=== PATIENT | female | born 1940 | race Caucasian/White ===

== ENCOUNTER 2019-02-24 10:54 | Inpatient (IN) ==
[2019-02-24] MEDS ORDERED: 0.9 % Sodium Chloride 500 ML IVC ONE (11:07)
[2019-02-24 11:29] LABS: Basophils # 0.1 K/mcL (0.0-0.2); Basophils % 0.6 %; Eosinophils # 0.1 K/mcL (0.0-0.6); Eosinophils % 0.8 %; Hematocrit 42.8 % (35.3-44.9); Immature Granulocytes % 0.7 % (0-4); Lymphocytes # 2.1 K/mcL (0.6-4.6); Mean Corpuscular Volume 94.1 fL (83.0-100.0); Mean Platelet Volume 11.3 fL (9.4-12.4); Monocytes # 0.8 K/mcL (0.0-1.3); Monocytes % 8.4 %; Platelet Count 256 K/mcL (140-400); Red Blood Count 4.55 M/mcL (3.82-4.97); Segmented Neutrophils % 66.5 %
[2019-02-24 11:51] LABS: Calcium 9.7 mg/dL (8.6-10.3); Potassium 4.3 mEq/L (3.5-5.1)
[2019-02-24 11:59] LABS: INR 1.2; Prothrombin Time 13.5 Seconds (9.4-12.1)
[2019-02-24 12:02] LABS: Activated Partial Thrombo Time 34.3 Seconds (26.0-36.0)
[2019-02-24 12:04] LABS: Thyroid Stimulating Hormone 3.28 mcIU/mL (0.340-5.600)
[2019-02-24] MEDS ORDERED: Naloxone 0.4 MG/ML INJ IVP PRN (12:49)
[2019-02-24] MEDS ORDERED: *HR* HYDROcodone/Acet 5/325 mg TABLET PO PRN (12:51)
[2019-02-24] MEDS: Acetaminophen 325 MG TABLET PO PRN (20:29)
[2019-02-25 01:24] LABS: Basophils % 0.6 %; Eosinophils # 0.1 K/mcL (0.0-0.6); Hematocrit 36.5 % (35.3-44.9); Immature Granulocytes % 0.4 % (0-4); Lymphocytes # 1.9 K/mcL (0.6-4.6); Lymphocytes % 27.1 %; Mean Corpuscular HGB Conc 33.4 g/dL (31.6-35.5); Mean Corpuscular Hemoglobin 33.2 pg (28.0-33.3); Mean Corpuscular Volume 99.2 fL (83.0-100.0); Mean Platelet Volume 11.4 fL (9.4-12.4); Monocytes # 0.6 K/mcL (0.0-1.3); Monocytes % 8.8 %; Neutrophils # 4.5 K/mcL (1.6-8.9); Platelet Count 193 K/mcL (140-400); Red Blood Count 3.68 M/mcL (3.82-4.97); Red Cell Distribution Width 15.2 % (11.5-14.5); Segmented Neutrophils % 62.1 %; White Blood Count 7.2 K/mcL (4.3-11.1)
[2019-02-25 01:25] LABS: Hemoglobin 12.2 g/dL (11.5-15.4)
[2019-02-25 01:39] LABS: Calcium 8.8 mg/dL (8.6-10.3); Magnesium 1.6 mg/dL (1.6-2.6); Phosphorous 3.7 mg/dL (2.7-4.5); Potassium 3.8 mEq/L (3.5-5.1)
[2019-02-25] MEDS ORDERED: Regadenoson 0.4 MG/5 ML SYRINGE IVP ONE (05:56)
[2019-02-25] MEDS: Levothyroxine 25 MCG TABLET PO SCH (06:37)
[2019-02-25] MEDS ORDERED: amLODIPine 5 MG TABLET PO SCH (09:00)
[2019-02-25] MEDS: *HR* Rivaroxaban 15 MG TABLET PO SCH (16:54)
[2019-02-25] MEDS: Acetaminophen 325 MG TABLET PO PRN (20:40)
[2019-02-26 02:23] LABS: Basophils % 0.3 %; Eosinophils # 0.1 K/mcL (0.0-0.6); Eosinophils % 1.5 %; Hematocrit 37.7 % (35.3-44.9); Hemoglobin 12.2 g/dL (11.5-15.4); Immature Granulocytes % 0.4 % (0-4); Lymphocytes % 27.6 %; Mean Corpuscular HGB Conc 32.4 g/dL (31.6-35.5); Mean Corpuscular Hemoglobin 32.4 pg (28.0-33.3); Mean Platelet Volume 11.1 fL (9.4-12.4); Monocytes # 0.8 K/mcL (0.0-1.3); Monocytes % 10.2 %; Neutrophils # 4.4 K/mcL (1.6-8.9); Platelet Count 212 K/mcL (140-400); Red Blood Count 3.77 M/mcL (3.82-4.97); Red Cell Distribution Width 15.2 % (11.5-14.5); White Blood Count 7.4 K/mcL (4.3-11.1)
[2019-02-26 05:13] LABS: Basophils % 0.4 %; Eosinophils # 0.1 K/mcL (0.0-0.6); Eosinophils % 1.9 %; Hemoglobin 13.1 g/dL (11.5-15.4); Immature Granulocytes % 0.7 % (0-4); Mean Corpuscular HGB Conc 32.8 g/dL (31.6-35.5); Mean Corpuscular Hemoglobin 32.8 pg (28.0-33.3); Mean Platelet Volume 11.2 fL (9.4-12.4); Monocytes # 0.6 K/mcL (0.0-1.3); Neutrophils # 4.6 K/mcL (1.6-8.9); Platelet Count 230 K/mcL (140-400); Red Cell Distribution Width 15.1 % (11.5-14.5); White Blood Count 7.4 K/mcL (4.3-11.1)
[2019-02-26 05:39] LABS: Calcium 9.3 mg/dL (8.6-10.3); Potassium 4.1 mEq/L (3.5-5.1)
[2019-02-26] MEDS: Levothyroxine 25 MCG TABLET PO SCH ×2 (05:47→10:34)
[2019-02-26] MEDS ORDERED: Regadenoson 0.4 MG/5 ML SYRINGE IVP ONE (06:01)
[2019-02-26] MEDS ORDERED: Aminoglycoside Consult 1 EACH MC ONE (07:23)
[2019-02-26] MEDS ORDERED: *HR* Metoprolol 5 MG/5 ML VIAL IVP ONE (13:50)
[2019-02-26] MEDS: Metoprolol XL (24 HR) Succ 50 MG TAB.ER.24H PO SCH (18:25)
[2019-02-26] MEDS: *HR* Rivaroxaban 15 MG TABLET PO SCH (18:25)
[2019-02-26] MEDS: Acetaminophen 325 MG TABLET PO PRN (22:25)
[2019-02-27] MEDS: Levothyroxine 25 MCG TABLET PO SCH (07:04)
[2019-02-27 07:27] VITALS: BP 138/78
[2019-02-27] MEDS: Metoprolol XL (24 HR) Succ 50 MG TAB.ER.24H PO SCH (08:08)
[2019-02-27] MEDS ORDERED: FLU Vac QV 19-20 (6Month+)/PF 0.5 ML SYRINGE IM ONE (12:54)
== END 2019-02-27 14:54 | disposition home or self-care (01) | DRG 310 ==
LOC: 2NENU 10:54 → EMEROOARM 10:54 → SUATTDRO 13:23 → 2NENU 13:58 → SUATTDRO 02-25 20:21
PROVIDERS: ADMIT Student in an Organized Health Care Education/Training Program; ATTEND Internal Medicine

== ENCOUNTER 2021-07-04 10:56 | Inpatient (IN) ==
[2021-07-04] MEDS ORDERED: *HR* Metoprolol 5 MG/5 ML VIAL IVP ONE ×2 (11:48→20:43)
[2021-07-04 12:33] LABS: Basophils % 0.3 %; Eosinophils % 0.2 %; Hematocrit 36.5 % (35.3-44.9); Hemoglobin 11.2 g/dL (11.5-15.4); Immature Granulocytes % 0.4 % (0-4); Lymphocytes # 1.1 K/mcL (0.6-4.6); Lymphocytes % 10.7 %; Mean Corpuscular HGB Conc 30.7 g/dL (31.6-35.5); Mean Corpuscular Hemoglobin 28.6 pg (28.0-33.3); Mean Corpuscular Volume 93.1 fL (83.0-100.0); Monocytes # 0.7 K/mcL (0.0-1.3); Monocytes % 6.9 %; Neutrophils # 8.1 K/mcL (1.6-8.9); Platelet Count 264 K/mcL (140-400); Red Blood Count 3.92 M/mcL (3.82-4.97); Red Cell Distribution Width 16.2 % (11.5-14.5); Segmented Neutrophils % 81.5 %
[2021-07-04 12:53] LABS: Alanine Aminotransferase 8 Units/L (7-52); Albumin 3.7 g/dL (3.5-5.7); Albumin/Globulin Ratio 1.3 (1.1-2.2); Alkaline Phosphatase 71 Units/L (34-104); Aspartate Amino Transferase 11 Units/L (13-39); BUN/Creatinine Ratio 19 (6-26); Bilirubin,Total 0.6 mg/dL (0.3-1.0); Blood Urea Nitrogen 19 mg/dL (8-23); Calcium 9.6 mg/dL (8.6-10.3); Carbon Dioxide 29 mEq/L (23-29); Chloride 104 mEq/L (98-107); Globulin 2.9 g/dL (2.4-3.5); Glucose 116 mg/dL (70-105); Magnesium 1.5 mg/dL (1.6-2.6); Osmolality,Calculated 299 (280-300); Potassium 3.5 mEq/L (3.5-5.1); Sodium 143 mEq/L (136-145); Total Protein 6.6 g/dL (6.4-8.9); Troponin I 0.03 ng/mL (< 0.04); eGFR For African Americans > 60 (> 60); eGFR For Non-African Americans 52 (> 60)
[2021-07-04] MEDS ORDERED: cefTRIAXone 1,000 MG in 0.9 % Sodium Chloride Mini Bag 100 ML IVPB ONE (12:53)
[2021-07-04] MEDS ORDERED: Azithromycin 250 MG TABLET PO ONE (12:53)
[2021-07-04] MEDS: DilTIAZem 50 MG/50 ML IV.SOLN IVC SCH ×2 (13:10→16:57)
[2021-07-04] MEDS ORDERED: Furosemide 40 MG/4 ML VIAL IVP ONE (14:19)
[2021-07-04] MEDS ORDERED: *HR* Metoprolol 5 MG/5 ML VIAL IVP PRN (14:50)
[2021-07-04] MEDS ORDERED: Acetaminophen 325 MG TABLET PO PRN (15:10)
[2021-07-04] MEDS ORDERED: Ondansetron 4 MG/2 ML VIAL IVP PRN (15:10)
[2021-07-04] MEDS ORDERED: Melatonin 3 MG TABLET PO PRN (15:10)
[2021-07-04] MEDS ORDERED: Naloxone 0.4 MG/ML INJ IVP PRN (15:10)
[2021-07-04] MEDS ORDERED: *HR* Heparin 5,000 UNIT/ML VIAL IVP PRN ×2 (15:14)
[2021-07-04] MEDS ORDERED: Heparin 25,000UNIT/250ML 1/2NS 25,000 UNIT/250 ML IV.SOLN IVC SCH (15:15)
[2021-07-04] MEDS ORDERED: Potassium Chloride Elixir 20 MEQ/15 ML UDC PO ONE (15:17)
[2021-07-04] MEDS: *HR* Metoprolol 5 MG/5 ML VIAL IVP PRN ×2 (15:21→21:37)
[2021-07-04] MEDS: Metoprolol XL (24 HR) Succ 50 MG TAB.ER.24H PO SCH (16:15)
[2021-07-04] MEDS: Heparin 25,000UNIT/250ML 1/2NS 25,000 UNIT/250 ML IV.SOLN IVC SCH (16:16)
[2021-07-04 18:13] LABS: Hematocrit 35.7 % (35.3-44.9); Hemoglobin 11.1 g/dL (11.5-15.4); Mean Corpuscular HGB Conc 31.1 g/dL (31.6-35.5); Mean Corpuscular Hemoglobin 29.2 pg (28.0-33.3); Mean Corpuscular Volume 93.9 fL (83.0-100.0); Mean Platelet Volume 11.2 fL (9.4-12.4); Platelet Count 277 K/mcL (140-400); Red Cell Distribution Width 16.3 % (11.5-14.5); White Blood Count 13.2 K/mcL (4.3-11.1)
[2021-07-04 18:23] LABS: INR 1.6; Prothrombin Time 17.5 Seconds (9.4-12.1)
[2021-07-04 18:24] LABS: Activated Partial Thrombo Time 42.9 Seconds (26.0-36.0)
[2021-07-04 18:30] LABS: Heparin anti-factor XA UFH > 2.00 IU/mL (0.30-0.70)
[2021-07-04 22:44] LABS: ABG Base Excess 3 mEq/L (-2 to 3); ABG HCO3 27 mEq/L (21-27); ABG Oxygen Saturation 95 % (95-98); ABG PCO2 42 mmHg (35-45); ABG PH 7.42 pH Units (7.32-7.45); ABG PO2 76 mmHg (85-104); ABG TCO2 29 mEq/L (20-26)
[2021-07-04] MEDS ORDERED: *HR* Labetalol 20 MG/4 ML SYRINGE IVP ONE (23:53)
[2021-07-05 00:42] LABS: Basophils % 0.5 %; Eosinophils % 0.1 %; Hematocrit 33.8 % (35.3-44.9); Hemoglobin 10.5 g/dL (11.5-15.4); Immature Granulocytes % 0.4 % (0-4); Lymphocytes # 1.2 K/mcL (0.6-4.6); Lymphocytes % 14.2 %; Mean Corpuscular HGB Conc 31.1 g/dL (31.6-35.5); Mean Corpuscular Hemoglobin 29.2 pg (28.0-33.3); Mean Corpuscular Volume 93.9 fL (83.0-100.0); Monocytes # 0.7 K/mcL (0.0-1.3); Monocytes % 8.3 %; Neutrophils # 6.3 K/mcL (1.6-8.9); Platelet Count 228 K/mcL (140-400); Red Cell Distribution Width 16.1 % (11.5-14.5); Segmented Neutrophils % 76.5 %; White Blood Count 8.2 K/mcL (4.3-11.1)
[2021-07-05 00:50] LABS: INR 1.6; Prothrombin Time 17.4 Seconds (9.4-12.1)
[2021-07-05 01:07] LABS: BUN/Creatinine Ratio 19 (6-26); Blood Urea Nitrogen 19 mg/dL (8-23); Calcium 9.3 mg/dL (8.6-10.3); Carbon Dioxide 27 mEq/L (23-29); Chloride 105 mEq/L (98-107); Glucose 107 mg/dL (70-105); Magnesium 1.8 mg/dL (1.6-2.6); Osmolality,Calculated 297 (280-300); Potassium 3.7 mEq/L (3.5-5.1); Sodium 142 mEq/L (136-145); eGFR For African Americans > 60 (> 60); eGFR For Non-African Americans 52 (> 60)
[2021-07-05 01:08] LABS: Troponin I < 0.03 ng/mL (< 0.04)
[2021-07-05] MEDS: *HR* Metoprolol 5 MG/5 ML VIAL IVP PRN (05:07)
[2021-07-05] MEDS ORDERED: *HR* Labetalol 20 MG/4 ML SYRINGE IVP ONE ×2 (06:01→17:39)
[2021-07-05] MEDS: Levothyroxine 25 MCG TABLET PO SCH (06:12)
[2021-07-05] MEDS ORDERED: *HR* Metoprolol 5 MG/5 ML VIAL IVP ONE (08:18)
[2021-07-05] MEDS: Metoprolol XL (24 HR) Succ 50 MG TAB.ER.24H PO SCH (08:49)
[2021-07-05] MEDS ORDERED: *HR* Digoxin 0.5 MG/2 ML AMPUL IVP ONE (11:42)
[2021-07-05] MEDS ORDERED: Furosemide 40 MG/4 ML VIAL IVP ONE ×2 (11:47→13:00)
[2021-07-05] MEDS: *HR* Digoxin 0.5 MG/2 ML AMPUL IVP SCH ×2 (17:25→23:49)
[2021-07-05] MEDS: Heparin 25,000UNIT/250ML 1/2NS 25,000 UNIT/250 ML IV.SOLN IVC SCH (20:10)
[2021-07-05] MEDS ORDERED: Metoprolol XL (24 HR) Succ 50 MG TAB.ER.24H PO SCH (21:00)
[2021-07-06] MEDS ORDERED: *HR* Labetalol 20 MG/4 ML SYRINGE IVP ONE ×2 (03:18→05:08)
[2021-07-06] MEDS: Levothyroxine 25 MCG TABLET PO SCH (05:23)
[2021-07-06] MEDS: Metoprolol XL (24 HR) Succ 50 MG TAB.ER.24H PO SCH ×3 (07:50→20:33)
[2021-07-06] MEDS ORDERED: Furosemide 40 MG/4 ML VIAL IVP SCH ×2 (09:00→17:00)
[2021-07-06] MEDS ORDERED: *HR* Digoxin 0.125 MG TABLET PO SCH (09:00)
[2021-07-06 10:00] LABS: Basophils # 0.1 K/mcL (0.0-0.2); Basophils % 0.5 %; Eosinophils # 0.1 K/mcL (0.0-0.6); Eosinophils % 0.5 %; Hemoglobin 10.7 g/dL (11.5-15.4); Immature Granulocytes % 0.8 % (0-4); Lymphocytes # 1.1 K/mcL (0.6-4.6); Lymphocytes % 11.3 %; Mean Corpuscular HGB Conc 30.6 g/dL (31.6-35.5); Mean Corpuscular Hemoglobin 28.8 pg (28.0-33.3); Mean Corpuscular Volume 94.1 fL (83.0-100.0); Mean Platelet Volume 11.4 fL (9.4-12.4); Monocytes # 0.7 K/mcL (0.0-1.3); Neutrophils # 7.4 K/mcL (1.6-8.9); Platelet Count 209 K/mcL (140-400); Red Blood Count 3.72 M/mcL (3.82-4.97); Red Cell Distribution Width 15.8 % (11.5-14.5); Segmented Neutrophils % 79.9 %; White Blood Count 9.3 K/mcL (4.3-11.1)
[2021-07-06 10:01] LABS: BUN/Creatinine Ratio 17 (6-26); Blood Urea Nitrogen 18 mg/dL (8-23); Calcium 9.1 mg/dL (8.6-10.3); Carbon Dioxide 31 mEq/L (23-29); Chloride 100 mEq/L (98-107); Glucose 85 mg/dL (70-105); Osmolality,Calculated 295 (280-300); Potassium 3.6 mEq/L (3.5-5.1); Sodium 142 mEq/L (136-145); eGFR For African Americans > 60 (> 60); eGFR For Non-African Americans 51 (> 60)
[2021-07-06] MEDS: Heparin 25,000UNIT/250ML 1/2NS 25,000 UNIT/250 ML IV.SOLN IVC SCH (15:30)
[2021-07-06] MEDS: Albumin 25% 25gram/100mL 25 GM/100 ML IV.SOLN IVPB SCH (15:36)
[2021-07-06] MEDS: Furosemide 40 MG/4 ML VIAL IVP SCH (17:15)
[2021-07-07] MEDS: Albumin 25% 25gram/100mL 25 GM/100 ML IV.SOLN IVPB SCH (04:30)
[2021-07-07 04:43] LABS: Mean Corpuscular HGB Conc 30.3 g/dL (31.6-35.5); Mean Corpuscular Hemoglobin 28.2 pg (28.0-33.3); Mean Corpuscular Volume 93.2 fL (83.0-100.0); Mean Platelet Volume 10.9 fL (9.4-12.4); Platelet Count 212 K/mcL (140-400); Red Blood Count 3.54 M/mcL (3.82-4.97); Red Cell Distribution Width 15.3 % (11.5-14.5); White Blood Count 9.2 K/mcL (4.3-11.1)
[2021-07-07 04:59] LABS: BUN/Creatinine Ratio 16 (6-26); Blood Urea Nitrogen 16 mg/dL (8-23); Calcium 9.2 mg/dL (8.6-10.3); Carbon Dioxide 36 mEq/L (23-29); Chloride 95 mEq/L (98-107); Glucose 89 mg/dL (70-105); Magnesium 1.1 mg/dL (1.6-2.6); Osmolality,Calculated 295 (280-300); Potassium 3.4 mEq/L (3.5-5.1); Sodium 142 mEq/L (136-145); eGFR For African Americans > 60 (> 60); eGFR For Non-African Americans 52 (> 60)
[2021-07-07] MEDS ORDERED: Albumin 25% 25gram/100mL 25 GM/100 ML IV.SOLN IVC SCH (05:15)
[2021-07-07] MEDS: Furosemide 40 MG/4 ML VIAL IVP SCH ×2 (06:25→17:32)
[2021-07-07] MEDS: Levothyroxine 25 MCG TABLET PO SCH (06:26)
[2021-07-07] MEDS ORDERED: *HR* Labetalol 20 MG/4 ML SYRINGE IVP ONE ×2 (10:41→12:25)
[2021-07-07] MEDS: Heparin 25,000UNIT/250ML 1/2NS 25,000 UNIT/250 ML IV.SOLN IVC SCH (10:49)
[2021-07-07] MEDS: Metoprolol XL (24 HR) Succ 50 MG TAB.ER.24H PO SCH ×2 (10:51→21:23)
[2021-07-07] MEDS: *HR* Digoxin 0.125 MG TABLET PO SCH ×2 (10:55→11:32)
[2021-07-07] MEDS ORDERED: *HR* HYDROcodone/Acet 5/325 mg TABLET PO PRN (18:31)
[2021-07-07] MEDS: Apixaban 5 MG TABLET PO SCH (21:23)
[2021-07-08] MEDS: Furosemide 40 MG/4 ML VIAL IVP SCH ×2 (05:31→16:59)
[2021-07-08] MEDS: Levothyroxine 25 MCG TABLET PO SCH (05:31)
[2021-07-08 05:59] LABS: Hematocrit 32.8 % (35.3-44.9); Hemoglobin 10.2 g/dL (11.5-15.4); Mean Corpuscular HGB Conc 31.1 g/dL (31.6-35.5); Mean Corpuscular Hemoglobin 28.3 pg (28.0-33.3); Mean Corpuscular Volume 91.1 fL (83.0-100.0); Mean Platelet Volume 11.2 fL (9.4-12.4); Platelet Count 191 K/mcL (140-400); Red Cell Distribution Width 15.5 % (11.5-14.5)
[2021-07-08 06:21] LABS: Potassium 3.5 mEq/L (3.5-5.1)
[2021-07-08] MEDS: Metoprolol XL (24 HR) Succ 50 MG TAB.ER.24H PO SCH ×2 (08:16→20:34)
[2021-07-08] MEDS: *HR* Digoxin 0.125 MG TABLET PO SCH (08:16)
[2021-07-08] MEDS ORDERED: Metoprolol XL (24 HR) Succ 50 MG TAB.ER.24H PO ONE (12:15)
[2021-07-09] MEDS: *HR* Metoprolol 5 MG/5 ML VIAL IVP PRN ×2 (00:37→06:19)
[2021-07-09 02:52] LABS: Hematocrit 33.8 % (35.3-44.9); Hemoglobin 10.7 g/dL (11.5-15.4); Mean Corpuscular HGB Conc 31.7 g/dL (31.6-35.5); Mean Corpuscular Hemoglobin 29.2 pg (28.0-33.3); Mean Corpuscular Volume 92.1 fL (83.0-100.0); Mean Platelet Volume 11.2 fL (9.4-12.4); Platelet Count 208 K/mcL (140-400); Red Blood Count 3.67 M/mcL (3.82-4.97); Red Cell Distribution Width 15.5 % (11.5-14.5); White Blood Count 9.3 K/mcL (4.3-11.1)
[2021-07-09 03:02] LABS: INR 1.1; Prothrombin Time 12.7 Seconds (9.4-12.1)
[2021-07-09 03:06] LABS: Activated Partial Thrombo Time 29.5 Seconds (26.0-36.0)
[2021-07-09] MEDS ORDERED: *HR* Labetalol 20 MG/4 ML SYRINGE IVP ONE (03:07)
[2021-07-09 03:17] LABS: Calcium 8.9 mg/dL (8.6-10.3); Potassium 3.7 mEq/L (3.5-5.1)
[2021-07-09] MEDS: Furosemide 40 MG/4 ML VIAL IVP SCH (06:19)
[2021-07-09] MEDS: Levothyroxine 25 MCG TABLET PO SCH (06:19)
[2021-07-09] MEDS ORDERED: acetaZOLAMIDE 375 MG in Water for inj. (sterile) 3.75 ML IVP ONE (08:06)
[2021-07-09] MEDS: *HR* Digoxin 0.125 MG TABLET PO SCH (08:57)
[2021-07-09] MEDS: Metoprolol XL (24 HR) Succ 50 MG TAB.ER.24H PO SCH ×2 (08:58→20:14)
[2021-07-09] MEDS: Albumin 25% 25gram/100mL 25 GM/100 ML IV.SOLN IVC SCH ×2 (10:45→12:08)
[2021-07-09] MEDS: Apixaban 5 MG TABLET PO SCH (20:10)
[2021-07-10 03:27] LABS: Basophils % 0.4 %; Eosinophils # 0.1 K/mcL (0.0-0.6); Eosinophils % 1.8 %; Hematocrit 31.6 % (35.3-44.9); Hemoglobin 9.8 g/dL (11.5-15.4); Immature Granulocytes % 0.5 % (0-4); Lymphocytes % 12.7 %; Mean Corpuscular Hemoglobin 28.7 pg (28.0-33.3); Mean Corpuscular Volume 92.7 fL (83.0-100.0); Mean Platelet Volume 11.5 fL (9.4-12.4); Monocytes # 0.9 K/mcL (0.0-1.3); Monocytes % 11.8 %; Neutrophils # 5.7 K/mcL (1.6-8.9); Platelet Count 186 K/mcL (140-400); Red Blood Count 3.41 M/mcL (3.82-4.97); Red Cell Distribution Width 15.5 % (11.5-14.5); Segmented Neutrophils % 72.8 %; White Blood Count 7.9 K/mcL (4.3-11.1)
[2021-07-10 03:52] LABS: Potassium 2.9 mEq/L (3.5-5.1)
[2021-07-10] MEDS: Levothyroxine 25 MCG TABLET PO SCH (05:18)
[2021-07-10] MEDS: *HR* Digoxin 0.125 MG TABLET PO SCH (08:27)
[2021-07-10] MEDS: Apixaban 5 MG TABLET PO SCH ×2 (08:28→20:27)
[2021-07-10] MEDS: Metoprolol XL (24 HR) Succ 50 MG TAB.ER.24H PO SCH ×2 (08:28→20:28)
[2021-07-10] MEDS ORDERED: Furosemide 40 MG TABLET PO SCH (09:00)
[2021-07-10] MEDS ORDERED: acetaZOLAMIDE 375 MG in Water for inj. (sterile) 3.75 ML IVP ONE (09:22)
[2021-07-10 19:53] LABS: Adenovirus F 40/41 PCR Not detected (Not detect); Astrovirus PCR Not detected (Not detect); C.difficile Toxin A/B Gene PCR Not detected (Not detect); Campylobacter by PCR Not detected (Not detect); Cryptosporidium by PCR Not detected (Not detect); Cyclospora cayetanensis PCR Not detected (Not detect); E. coli O157 by PCR Not detected (Not detect); Entamoeba histolytica PCR Not detected (Not detect); Enteroaggregative E.coli(EAEC) Not detected (Not detect); Enteropathogenic E.coli(EPEC) Not detected (Not detect); Enterotoxigenic E.coli (ETEC) Not detected (Not detect); Giardia lamblia PCR Not detected (Not detect); Norovirus GI/GII PCR Not detected (Not detect); Plesiomonas shigelloides PCR Not detected (Not detect); Rotavirus A PCR Not detected (Not detect); Salmonella PCR Not detected (Not detect); Sapovirus PCR Not detected (Not detect); Shig/EnteroinvasiveE coli EIEC Not detected (Not detect); Shigalike tox-prod E coli STEC Not detected (Not detect); Vibrio PCR Not detected (Not detect); Vibrio cholerae PCR Not detected (Not detect); Yersinia enterocolitica PCR Not detected (Not detect)
[2021-07-11 01:57] LABS: Basophils % 0.3 %; Eosinophils # 0.1 K/mcL (0.0-0.6); Eosinophils % 1.4 %; Hematocrit 32.8 % (35.3-44.9); Hemoglobin 10.2 g/dL (11.5-15.4); Immature Granulocytes % 0.8 % (0-4); Lymphocytes # 1.3 K/mcL (0.6-4.6); Lymphocytes % 14.3 %; Mean Corpuscular HGB Conc 31.1 g/dL (31.6-35.5); Mean Corpuscular Hemoglobin 29.2 pg (28.0-33.3); Mean Platelet Volume 11.7 fL (9.4-12.4); Monocytes # 1.1 K/mcL (0.0-1.3); Neutrophils # 6.3 K/mcL (1.6-8.9); Platelet Count 199 K/mcL (140-400); Red Blood Count 3.49 M/mcL (3.82-4.97); Red Cell Distribution Width 15.9 % (11.5-14.5); Segmented Neutrophils % 71.2 %; White Blood Count 8.8 K/mcL (4.3-11.1)
[2021-07-11 02:16] LABS: Calcium 8.7 mg/dL (8.6-10.3); Potassium 3.6 mEq/L (3.5-5.1)
[2021-07-11] MEDS: Levothyroxine 25 MCG TABLET PO SCH (05:08)
[2021-07-11] MEDS ORDERED: Furosemide 20 MG TABLET PO SCH (09:00)
[2021-07-11] MEDS: Apixaban 5 MG TABLET PO SCH (09:26)
[2021-07-11] MEDS: *HR* Digoxin 0.125 MG TABLET PO SCH (09:26)
[2021-07-11] MEDS: Metoprolol XL (24 HR) Succ 50 MG TAB.ER.24H PO SCH (09:26)
[2021-07-11 10:53] VITALS: BP 130/80; PULSE 105; TEMP 98.7; O2SAT 97
== END 2021-07-11 16:05 | disposition home health service (06) | DRG 308 ==
LOC: 2NENU 10:56 → EMEROOARM 10:56 → SUATTDRO 14:28 → 2NENU 15:25
PROVIDERS: ADMIT Internal Medicine; ATTEND Internal Medicine